=== PATIENT | female | born 1940 | race Caucasian/White ===

== ENCOUNTER → 2019-01-03 | Day surgery (SDC) | payer MEDICARE ==
[~2019-01-03] MED LIST: Lactated Ringers 1,000 ML IV SCH; Lidocaine 1% 4 ML ONE; Lidocaine 1%/Sod Bicarbonate in NS 8.4% 1 ML Syringe IDERM PRN; Propofol 200 MG/20 ML SDV ONE; Sodium Chloride 0.9% 10 ML Syringe FLUSH PRN
--- NOTE | 2019-01-03 09:55 | PCM.PREANE ---
Preanesthetic Assessment - Procedure Proposed Procedure: colonoscopy - Anesthesia/Transfusion/Family Hx Anesthesia History: Prior Anesthesia Without Reaction Family History of Anesthesia Reaction: No Transfusion History: No Prior Transfusion(s) - Review of Systems General: No Symptoms Pulmonary: No Symptoms Cardiovascular: No Symptoms, Dyspnea on Exertion (smoked for 55 years) Gastrointestinal: No Symptoms Neurological: No Symptoms Other: Reports: Easy Bruising - Physical Assessment NPO Status Date: 01/02/19 NPO Status Time: 08:30 (sip of water) O2 Sat by Pulse Oximetry: 97 Respiratory Rate: 16 Vital Signs: Last Vital Signs Temp 98.0 F 01/03/19 09:20 Pulse 79 01/03/19 09:20 Resp 16 01/03/19 09:20 BP 153/61 H 01/03/19 09:20 Pulse Ox 97 01/03/19 09:20 Height: 5 ft Weight: 65.771 kg ASA Class: 3 Mental Status: Alert & Oriented x3 Airway Class: Mallampati = 1 Dentition: Reports: Normal Dentition Thyro-Mental Finger Breadths: 3 Mouth Opening Finger Breadths: 3 ROM/Head Extension: Full Lungs: Clear to Auscultation, Normal Respiratory Effort Cardiovascular: Regular Rate, Regular Rhythm - Allergies Allergies/Adverse Reactions: Allergies Allergy/AdvReac Type Severity Reaction Status Date / Time RUFUS Inhibitors Allergy Cough Verified 01/02/19 14:24 amlodipine [From Norvasc] Allergy Rash Verified 01/02/19 14:24 [id number]-[id number]-Kvm Reductase Allergy Rash Verified 01/02/19 14:24 Inhibitor - Blood Blood Available: No - Acknowledgements Anesthesia Type Planned: MAC Pt an Appropriate Candidate for the Planned Anesthesia: Yes Alternatives and Risks of Anesthesia Discussed w Pt/Guardian: Yes Pt/Guardian Understands and Agrees with Anesthesia Plan: Yes PreAnesthesia Questionnaire HEENT History: Reports: Impaired Vision Other HEENT History: Pt wears glasses Cardiovascular History: Reports: Blood Clots/VTE/DVT, Heart Murmur, High Cholesterol, Hypertension, Other (See Below) Other Cardiovascular History: aortic valve stenosis, venous stasis, pseudoanuerysm right femoral artery Respiratory History: Reports: COPD, Other (See Below) Other Respiratory History: lung nodule, shortness of breath with activity Gastrointestinal History: Reports: Colon Polyp Genitourinary History: Reports: Other (See Below) Other Genitourinary History: renal cysts, cystoscopy 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: Reports: Other OB/BYN History: oopherectomy left (pt not sure which one) Musculoskeletal History: Reports: Other (See Below) Other Musculoskeletal History: hallux valgus, hammertoe Neurological History: Reports: None Psychiatric History: Reports: None Endocrine/Metabolic History: Reports: None, Obesity/BMI 30+ Hematologic History: Reports: None Immunologic History: Reports: None Oncologic (Cancer) History: Reports: Squamous Cell Carcinoma Other Dermatologic History: 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, superficial phlebititis, perokeraosis, open foot wound, cellulitis - Past Surgical History Head Surgeries/Procedures: Reports: None HEENT Surgical History: Reports: Adenoidectomy, Tonsillectomy Other Cardiovascular Surgeries/Procedures: angiogram, veins stripped in 1971 Respiratory Surgical History: Reports: None GI Surgical History: Reports: Appendectomy, Colonoscopy Female Surgical History: Reports: Tubal Ligation Endocrine Surgical History: Reports: None Neurological Surgical History: Reports: Other (See Below) Other Neurological Surgeries/Procedures: spine surgery Oncologic Surgical History: Reports: None - SUBSTANCE USE Smoking Status *Q: Former Smoker Tobacco Use Within Last Twelve Months: No Second Hand Smoke Exposure: No Days Per Week of Alcohol Use: 2 Number of Drinks Per Day: 2 Total Drinks Per Week: 4 Recreational Drug Use History: No - HOME MEDS Home Medications: Home Meds Aspirin [Halfprin] 81 mg PO DAILY 03/06/15 [History] Alendronate Sodium [Fosamax] 70 mg PO Q7D 01/02/19 [History] Ca Carbonate/Vitamin D3/Vit K [Calcium + D Soft Chewable Tab] 1 tab PO DAILY [History] Doxazosin Mesylate [Cardura] 2 mg PO DAILY 01/02/19 [History] Ezetimibe [Zetia] 10 mg PO DAILY 01/02/19 [History] Losartan [Cozaar] 100 mg PO DAILY 01/02/19 [History] Rosuvastatin Calcium [Crestor] 40 mg PO DAILY 01/02/19 [History] - CURRENT (IN HOUSE) MEDS Current Meds: Current Medications Lactated Ringer's (Ringers, Lactated) 1,000 mls @ 125 mls/hr IV ASDIRECTED MARLENE Stop: 01/03/19 23:00 Lidocaine/Sodium Bicarbonate (Buffered Lidocaine 1% In Ns 8.4%) 0.25 ml IDERM ONETIME PRN PRN Reason: Prior to IV Start Stop: 01/03/19 18:00 Sodium Chloride (Saline Flush) 10 ml FLUSH ASDIRECTED PRN PRN Reason: Keep Vein Open Stop: 01/03/19 18:00
--- NOTE | 2019-01-03 11:28 | PCM48HPAN ---
Post Anesthesia Note - EVALUATION WITHIN 48HRS OF ANESTHETIC Vital Signs in Normal Range: Yes Patient Participated in Evaluation: Yes Respiratory Function Stable: Yes Airway Patent: Yes Cardiovascular Function Stable: Yes Hydration Status Stable: Yes Pain Control Satisfactory: Yes Nausea and Vomiting Control Satisfactory: Yes Mental Status Recovered: Yes Pulse Rate: 68 SaO2: 100 Resp Rate: 16 Temperature: 97.9 C Blood Pressure: 120/60
--- NOTE | 2019-01-03 11:37 | PCM.OPNOTE ---
- General Post-Op/Procedure Note Date of Surgery/Procedure: 01/03/19 Operative Procedure(s): incomplete colonoscopy Findings: inability to pass the rectum due to diverticula and hard turn in the rectum; scattered hyperplastic polyps Pre Op Diagnosis: family history of colon cancer Post-Op Diagnosis: same Anesthesia Technique: MAC Primary Surgeon: Megan Rico Anesthesia Provider: Silvia De León Pathology: none Fluid Replacement, Intraop: 800 Output, Urine Amount: 0 EBL in mLs: 0 Complications: none apparent Condition: Good
[2019-01-03 12:19] VITALS: BP 157/67
--- NOTE | 2019-01-03 13:29 | PCM.PRNOTE ---
- Free Text/Narrative Note: Operative Report Date of Surgery/Procedure: January 03, 2019 Operative Procedure: Incomplete colonoscopy Pre Op Diagnosis: Family history of colon cancer in a first degree relative Post-Op Diagnosis: Same Surgeon: Megan Rico Anesthesia Technique: MAC Anesthesia Provider: Silvia De León CRNA IV Fluid Replacement, Intraop: 800cc Output, Urine Amount: 0cc EBL : 0cc Findings: Few hyperplastic polyps noted in the rectum, inability to pass the scope beyond 20 cm Specimens: None Indication: The patient is a 78 year-old lady who presented to the outpatient clinic requesting colorectal cancer screening. The patient has a history of colon cancer diagnosed in her mother around the same age as patient currently is now We discussed the procedure of a screening colonoscopy including the polypectomy and biopsy. We discussed at length the optional indication for this procedure at her more advanced age. The patient strongly wished to proceed Risks of bleeding and perforation were discussed, the patient understood and wished to proceed. Written and consent was obtained Description of the procedure: The patient was brought to the endoscopy suite and placed in the left lateral decubitus position. Appropriate monitors were applied. The patient was given MAC anesthesia. An anorectal examination was performed, revealing no abnormality. The scope was placed into the rectum and advanced to 20 cm where we did encounter multiple diverticula in this region. There was a hard turn noted in the scope would not pass without significant force. The scope was withdrawn and reinserted. Abdominal pressure was applied. No therapies were effective in allowing scope to pass beyond 20 cm. There were 2-3 hyperplastic appearing polyps noted in the rectum. These were not biopsied due to their benign appearance. In the rectum, the scope was retroflexed and no abnormalities were noted, except for some hemorrhoidal tissue. The scope was placed back in the lumen and the excess air was aspirated. The patient tolerated the procedure well. Complications: none apparent Condition: Good, transported to PACU in stable condition Megan Rico MD General Surgery
== END | disposition home or self-care (01) ==
LOC: JD.SDS 09:39
PROVIDERS: ATTEND Surgery
DX: Z12.11 Encounter for screening for malignant neoplasm of colon (principal); K62.1 Rectal polyp; K57.30 Diverticulosis of large intestine without perforation or abscess without bleeding; K64.9 Unspecified hemorrhoids; I10 Essential (primary) hypertension; I25.10 Atherosclerotic heart disease of native coronary artery without angina pectoris; I35.0 Nonrheumatic aortic (valve) stenosis; E78.00 Pure hypercholesterolemia, unspecified; J44.9 Chronic obstructive pulmonary disease, unspecified; R91.1 Solitary pulmonary nodule; N28.1 Cyst of kidney, acquired; Z88.8 Allergy status to other drugs, medicaments and biological substances; Z86.010 Personal history of colon polyps; Z86.718 Personal history of other venous thrombosis and embolism; Z87.891 Personal history of nicotine dependence; Z80.0 Family history of malignant neoplasm of digestive organs; Z79.82 Long term (current) use of aspirin; Z79.899 Other long term (current) drug therapy
CPT/HCPCS: G0104; J2001; J2704; J7120; 00811

== ENCOUNTER 2023-05-09 09:07 | Day surgery (SDC) | payer MEDICARE ==
[~2023-05-09 09:07] MED LIST changes: -Lidocaine 1% 4 ML ONE; -Lidocaine 1%/Sod Bicarbonate in NS 8.4% 1 ML Syringe IDERM PRN; -Propofol 200 MG/20 ML SDV ONE; +Sodium Chloride 0.9% 10 ML Syringe FLUSH SCH
[2023-05-09] MEDS ORDERED: Lidocaine 2% 100 MG/5 ML Syringe ONE (10:22)
[2023-05-09] MEDS ORDERED: Propofol 200 MG/20 ML SDV ONE ×2 (10:22→10:40)
[2023-05-09] MEDS ORDERED: ePHEDrine 50 MG/ML SDV ONE (11:11)
[2023-05-09 12:16] VITALS: BP 107/44; PULSE 62
== END 2023-05-09 12:40 | disposition home or self-care (01) ==
LOC: JD.SDS 09:07
PROVIDERS: ATTEND Surgery
DX: K57.30 Diverticulosis of large intestine without perforation or abscess without bleeding (principal); K51.90 Ulcerative colitis, unspecified, without complications; J44.9 Chronic obstructive pulmonary disease, unspecified; R93.89 Abnormal findings on diagnostic imaging of other specified body structures; I10 Essential (primary) hypertension; E78.00 Pure hypercholesterolemia, unspecified; M85.80 Other specified disorders of bone density and structure, unspecified site; J45.20 Mild intermittent asthma, uncomplicated; N28.1 Cyst of kidney, acquired; D69.6 Thrombocytopenia, unspecified; E66.9 Obesity, unspecified; I35.0 Nonrheumatic aortic (valve) stenosis; R00.2 Palpitations; R78.2 Finding of cocaine in blood; Z98.890 Other specified postprocedural states; Z90.49 Acquired absence of other specified parts of digestive tract; Z87.891 Personal history of nicotine dependence; Z88.8 Allergy status to other drugs, medicaments and biological substances; Z90.721 Acquired absence of ovaries, unilateral; Z86.010 Personal history of colon polyps; Z80.0 Family history of malignant neoplasm of digestive organs; Z86.16 Personal history of COVID-19; Z98.51 Tubal ligation status; Z79.82 Long term (current) use of aspirin; Z79.899 Other long term (current) drug therapy; Z68.31 Body mass index [BMI] 31.0-31.9, adult
CPT/HCPCS: 45380; J2704; J7120; 00811; 99100; J3490